=== PATIENT | male | born 1990 | race Caucasian/White ===

== ENCOUNTER 2021-02-20 20:50 | Emergency (ER) | payer BC ==
[~2021-02-20] VITALS: Ht 188 cm; Wt 93.0 kg
--- NOTE | 2021-02-20 21:23 | NUR ---
PT BIBSELF C/O LACERATION TO RT INDEX AND THUMB WHILE CLEANING SUSHI KNIFE. PT [id number] BREATHING EVENLY AND UNLABORED. PT ATTACHED TO MONITOR AND POX. PT GIVEN BLANKET AND CALL LIGHT WITHIN REACH
[2021-02-20] MEDS ORDERED: LIDOCAINE 1% INJ 50 ML MDV IJ ONE (21:37)
[2021-02-20] MEDS ORDERED: CEPHALEXIN MONOHYDRATE 500 MG CAPSULE PO ONE ×2 (22:00→22:11)
[2021-02-20] MEDS ORDERED: TDAP [DIPH/PERTUSSIS/TET] 0.5 ML VIAL IM ONE ×2 (22:00→22:12)
[2021-02-20] MEDS ORDERED: LIDOCAINE HCL/PF 1% 30 ML VIAL TP ONE (22:00)
[2021-02-20] MEDS ORDERED: HYDROCODONE/APAP 5/325MG TABLET PO ONE (22:00)
[2021-02-20] MEDS ORDERED: HYDROCODONE/APAP 5/325MG TABLET ONE (22:11)
--- NOTE | 2021-02-20 22:15 | NUR ---
MOISE ARANDA AT BEDSIDE FOR PROCEDURE
--- NOTE | 2021-02-20 22:45 | NUR ---
EMT AT BEDSIDE FOR SPLINT PLACEMENT
[2021-02-20] MEDS ORDERED: CEPH500C2 PO (22:53)
[2021-02-20] MEDS ORDERED: HYDR-3972 PO (22:53)
--- NOTE | 2021-02-20 23:19 | NUR ---
Patient discharged to home in stable condition. Written and verbal after care instructions given. Patient verbalizes understanding of instruction. Pt ambulatory with a steady gait
[2021-02-20 23:40] VITALS: BP 130/79
== END 2021-02-20 23:19 | disposition home or self-care (01) ==
LOC: ER 20:54
DX: S61.011A Laceration without foreign body of right thumb without damage to nail, initial encounter (principal); S61.210A Laceration without foreign body of right index finger without damage to nail, initial encounter; Z79.899 Other long term (current) drug therapy; W26.0XXA Contact with knife, initial encounter; Y93.89 Activity, other specified; Y92.89 Other specified places as the place of occurrence of the external cause; Y99.8 Other external cause status
CPT/HCPCS: 12002; 73140; 90471; 90715; 99283; J3490 ×2